=== PATIENT | male | born 1995 | race Caucasian/White ===

== ENCOUNTER 2017-06-21 14:18 | Emergency (ER) | payer OTHER ==
[~2017-06-21] VITALS: Ht 177.8 cm; Wt 80.4 kg
[2017-06-21 14:42] VITALS: BP 107/63; PULSE 57; TEMP 36.7; O2SAT 99; Ht 177.8 cm; Wt 80.4 kg
[2017-06-21] MEDS ORDERED: XYLOCAINE 1%/SOD BICARB 20 ML VIAL INFIL ONE (15:00)
--- NOTE | 2017-06-21 21:43 | EMERGENCY ROOM VISIT NOTE ---
ED Visit Note First contact with patient: 14:45 Chief Complaint: I cut my right thumb. History of Present Illness: Mr. Farr is a 21-year-old white male who ambulates into the ED accompanied by female friend complaining of a laceration to the anterior right thumb. He reports that approximately 1 hour ago while trying to split apart frozen hamburgers he sustained a laceration with a sharp knife. Before he came to the ED he controlled bleeding but did not wash the wound. He also complains of a stinging-type pain around the area of the laceration. He rates this pain a 3/10. The pain is nonradiating and increases with palpation. He denies any alleviating factors related to the pain. He has not taken a medication for pain prior to arrival at the hospital. He denies numbness, loss of sensation, tingling, and [id number] in the area of the laceration or throughout the right thumb.. Past Medical History: Asthma, status post tonsillectomy. Tetanus Immunization Status: Patient reports 2-3 years ago. Current Medications: Patient denies. Allergies to Medications: Patient denies. Social History: Patient is currently University student; he feels safe in his home environment; he denies tobacco and alcohol use. Physical Examination: Vital Signs: Date Time Temp Pulse Resp B/P (MAP) Pulse Ox O2 Delivery O2 Flow Rate FiO2 06/21/17 14:42 36.7 57 16 107/63 99 Room Air General: 21-year-old white male in no acute distress, afebrile and hemodynamically stable. Neurological: Awake, alert and oriented to person, place and time. Answering questions appropriately and following commands. Skin: Warm, dry and pink. Right Thumb: 3.8 cm laceration over the anterior aspect of the left thumb; starting at the distal phalanxes and extending to the proximal phalanxes. 2.2 cm of the laceration is full-thickness and the other portion is superficial. No active bleeding. Right Thumb: Soft tissue injury as noted above. No gross bony deformity. Full range of motion of flexion and extension of the interphalangeal joint and the MCP joint against resistance. Throughout the thumb the skin was warm and pink and capillary refill is brisk. He was able to distinguish light sensations through all dermatomes. Wound Repair: Complexity: Basic Verbal consent was obtained after the risks and benefits were explained. The skin was prepped with betadine and a sterile field set. Wound edges were anesthetized with 1.9 ml buffered 1% lidocaine. The wound was explored for foreign bodies and none found. Copious irrigation was performed using sterile saline. With direct pressure the bleeding subsided. Debridement was not performed. The wound edges were approximated using 5-0 Ethilon with 4 simple interrupted sutures. Hemostasis and excellent approximation was achieved. Antibacterial ointment and a sterile dressing applied. No complications and the patient tolerated the procedure well. ED Course: Patient is assessed with history and physical examination. Patient's medication list was reviewed. Patient's laceration is cleansed, repaired and dressed. Patient is educated on his condition and instructed on his treatment plan; he verbalizes acceptance and understand of the plan. Clinical Impression: Laceration to the left thumb Disposition: Patient discharged to home in stable condition accompanied by female friends; prior to departure he was reassessed and subjectively reported that he was pain-free Plan: Comfort measures, wound care and signs of infection were discussed with the patient. Patient was encouraged to followup with [facility] or return to the ED for signs of infection and/or suture removal in 10-12 days.
== END 2017-06-21 15:23 | disposition home or self-care (01) ==
LOC: C.EDB 14:19 → C.EDD 15:23
DX: S61.011A Laceration without foreign body of right thumb without damage to nail, initial encounter (principal); W26.0XXA Contact with knife, initial encounter; Y93.G1 Activity, food preparation and clean up; J45.909 Unspecified asthma, uncomplicated

== ENCOUNTER 2017-06-29 15:55 | Emergency (ER) | payer OTHER ==
[~2017-06-29] VITALS: Ht 177.8 cm; Wt 80.0 kg
[2017-06-29 16:00] VITALS: BP 119/66; PULSE 56; TEMP 36.7; O2SAT 100; Ht 177.8 cm; Wt 80.0 kg
[2017-06-29] MEDS ORDERED: CEPH500C PO (17:21)
[2017-06-29] MEDS ORDERED: SULF800T23 PO (17:21)
--- NOTE | 2017-06-29 17:22 | EMERGENCY ROOM VISIT NOTE ---
History First contact with patient: 16:54 Chief Complaint: WOUND RECHECK Stated Complaint: STITCHES, BLISTER Nursing Triage Summary: PT HERE WITH BLISTER TO RIGHT THUMB NEAR SUTURES. PT HAD STITCHES PLACED HERE A FEW DAYS AGO AFTER CUTTING SELF WHILE USING A KNIFE. NO DRAINAGE NOTED History of Present Illness The patient is a 21 year old male who presents to the Emergency Room via private vehicle accompanied by female with complaints of "stitches, blister". The patient states that he was here had sutures placed on June 21. He notes that they were healing well up until 2 days ago he developed a yellow bubble underneath the skin around the sutures. He is concerned this may be infected. He states that he was playing basketball in the region was not covered. He does note minimal pain in this region of which he rates as a 1/10. There is no fever or chills. Review of Systems A complete 6-point Review of Systems was discussed with the patient, with pertinent positives and negatives listed in the History of Present Illness. All remaining Review of Systems questions can be considered negative unless otherwise specified. Past Medical/Surgical History Laceration Family History No pertinent Social History Smoking Status: Never Smoker Patient lives locally. Current/Historical Medications Scheduled Cephalexin Monohydrate (Keflex), 500 MG PO QID Sulfa/Trimethoprim (Bactrim Ds 800MG/160MG), 1 TAB PO BID Physical Exam Vital Signs Date Time Temp Pulse Resp B/P (MAP) Pulse Ox O2 Delivery O2 Flow Rate FiO2 218 16:00 36.7 56 16 119/66 100 Room Air Physical Exam VITAL SIGNS - Vital signs and nursing notes were reviewed. Stable. Afebrile. GENERAL -21-year-old male appearing his stated age who is in no acute distress. Communicates well with provider and answers questions appropriately. SKIN - sutures are in place and look well. Underneath the middle of the wound, favoring the distal insertion of the mid suture there is a small circular yellow pocket just underneath the skin. There is also one similar on the other side of the stitch. No lymphangitic streaking, or erythema. EXTREMITIES -full range of motion noted to the affected digit. Good capillary refill. Medical Decision & Procedures Medical Decision Patient was seen and evaluated as above. He was here in October or and had sutures placed in his right thumb. There are healing well however there appears to be a small pocket of pus just underneath the skin within the suture. Suture was removed without separation of the wound edges and the region drain day yellow like pus which was sent for culture. Region was then cleansed with Betadine. The region was then incised with an 18-gauge needle. Patient did not feel any pain during the I&D. Region was cleansed. The pocket was very small. I suspect this is likely secondary to bacteria getting into the wound when it was not covered and he was likely playing basketball. He'll be started on Keflex and Bactrim. He was educated upon management, educated upon worrisome symptoms which to return, had questions answered prior to discharge, and was discharged home in good condition. In evaluation treatment this patient the following differential diagnoses were entertained: Abscess, cellulitis, among others. Impression Primary Impression: Infected wound Additional Impression: Encounter for removal of sutures Departure Information Dispostion Home / Self-Care Condition GOOD Prescriptions Sulfa/Trimethoprim (Bactrim Ds 800MG/160MG) Tab 1 TAB PO BID for 10 Days, #20 TAB Prov: Peterson Hendricks PA-C 06/29/17 Cephalexin Monohydrate (Keflex) 500 Mg Cap 500 MG PO QID for 10 Days, #40 CAP Prov: Peterson Hendricks PA-C 06/29/17 Referrals No Doctor, Assigned (PCP) Patient Instructions My [facility] Additional Instructions You were seen in the emergency department for removal of the sutures on your finger. The wound is slightly infected. I recommend Keflex 500 mg every 6 hours for 10 days. This is an antibiotic. I recommended Bactrim 1 tablet every 12 hours for 10 days. This is an antibiotic. All antibiotics have the potential to cause reaction. If you develop any new symptoms please discontinue and return immediately. This should be reevaluated in 2 days to ensure wound healing is appropriate. If it worsens in anyway please return. Please return with any new/concerning symptoms. Thank you for your time. Problem Qualifiers
--- NOTE | 2017-07-01 12:59 | Pharmacy Progress Note ---
ED Pharmacist Culture FollowUp Date of Service: Jul 01, 2017. Patient was sent home with a prescription for Keflex and Bactrim, patients wound culture growing MSSA which should be covered by keflex, can discontinue the Bactrim. Called patient who demonstrated understanding he was to stop the bactrim and continue keflex. Discussed with Dr. Erwin.
== END 2017-06-29 17:41 | disposition home or self-care (01) ==
LOC: C.EDB 15:58 → C.EDD 17:41
DX: T81.89XA Other complications of procedures, not elsewhere classified, initial encounter (principal); Y83.8 Other surgical procedures as the cause of abnormal reaction of the patient, or of later complication, without mention of misadventure at the time of the procedure; Z48.02 Encounter for removal of sutures